=== PATIENT | female | born 1985 | race Two or more races ===

== ENCOUNTER 2022-05-31 06:22 | Day surgery (SDC) | payer OTHER ==
[~2022-05-31] VITALS: Ht 170.2 cm; Wt 79.4 kg
[2022-05-31] MEDS ORDERED: PERCOCET 5-3251 EACH PO (09:11)
[2022-05-31] MEDS ORDERED: RECTICARE30 GM TOP (09:11)
[2022-05-31] MEDS ORDERED: DERMOPLAST PAIN78 GM TOP (09:12)
== END 2022-05-31 15:00 | disposition home or self-care (01) ==
LOC: CIR.AMB 06:22
PROVIDERS: ATTEND Surgery
DX: K60.3 Anal fistula (principal); K64.2 Third degree hemorrhoids; R19.5 Other fecal abnormalities; Z20.822 Contact with and (suspected) exposure to COVID-19